=== PATIENT | male | born 1945 | race Caucasian/White ===

== ENCOUNTER 2022-10-05 06:07 | Day surgery (SDC) | payer MEDICARE ==
[2022-09-27 14:40] LABS: BASOPHILS % (AUTO) 0.7 % (0-1); EOSINOPHILS # (AUTO) 0.1 X10'3 (0-0.9); EOSINOPHILS % (AUTO) 1.5 % (0-6); LYMPHOCYTES # (AUTO) 1.7 X10'3 (1.1-4.8); LYMPHOCYTES % (AUTO) 26.6 % (21-51); MEAN CORPUSCULAR HEMOGLOBIN 36.4 PG (27.0-31.0); MEAN CORPUSCULAR HGB CONC 34.2 g/dL (33.0-36.5); MEAN CORPUSCULAR VOLUME 106.3 FL (78-98); MEAN PLATELET VOLUME 7.9 FL (7.4-10.4); MONOCYTES # (AUTO) 0.5 X10'3 (0-0.9); MONOCYTES % (AUTO) 8.5 % (2-12); NEUTROPHILS % (AUTO) 62.7 % (42-75); PRE OP HEMATOCRIT 41.4 % (42.0-52.0); PRE OP HEMOGLOBIN 14.2 g/dL (14.0-17.9); PRE OP PLATELET COUNT 205 X10'3 (140-440); RED BLOOD COUNT 3.89 X10'6 (4.70-6.10); RED CELL DISTRIBUTION WIDTH 12.8 % (11.5-14.5)
[2022-09-27 14:53] LABS: ALBUMIN 4.1 G/DL (3.4-5.0); ALBUMIN/GLOBULIN RATIO 1.2 (1.1-1.5); ALKALINE PHOSPHATASE 77 IU/L (46-116); BLOOD UREA NITROGEN 19 MG/DL (7-18); BUN/CREATININE RATIO 18.8 (10.0-20.0); CALCIUM 8.8 MG/DL (8.5-10.1); CHLORIDE 104 MMOL/L (99-107); CREATININE 1.01 MG/DL (0.60-1.10); PRE OP ALT 36 U/L (30-65); PRE OP ANION GAP 7 (8-16); PRE OP AST 18 U/L (10-37); PRE OP BILIRUB, TOTAL 0.4 MG/DL (0.0-1.0); PRE OP GLUCOSE 106 MG/DL (70-104); PRE OP SODIUM 137 MMOL/L (135-145); TOTAL CARBON DIOXIDE 25.6 MMOL/L (24-32); TOTAL PROTEIN 7.4 G/DL (6.4-8.2); eGFR 72 ML/MIN
[~2022-10-05] VITALS: Ht 175.3 cm; Wt 79.8 kg
[~2022-10-05 06:07] MED LIST: AMLO1CAP10 PO; APIX5TAB3 PO; FLEC50TA28 PO; cefazolin 2gm/D5W 100mL 100 ML IV ONE; famotidine 20mg tablet PO ONE; ringers solution, lacted 1,000 ML IV SCH
[2022-10-05] MEDS ORDERED: meperidine/PF 25mg/ml syringe IV PRN ×3 (08:05)
[2022-10-05] MEDS ORDERED: morphine 2 MG/ML inj. syringe IV PRN (08:05)
[2022-10-05] MEDS ORDERED: ondansetron/PF 4mg/2ml inj IV PRN (08:05)
[2022-10-05] MEDS ORDERED: morphine 4 MG/ML inj SYRINge IV PRN (08:05)
[2022-10-05] MEDS ORDERED: proCHLORperazine 10 MG/2 ml inj IV PRN (08:05)
[2022-10-05] MEDS ORDERED: acetaminophen 1,000mg/100ml IV 100 ML IV PRN (08:05)
[2022-10-05] MEDS ORDERED: labetalol 20mg/4ml (5mg/ml) syringe IV PRN (08:05)
[2022-10-05] MEDS ORDERED: ringers solution, lacted 1,000 ML IV SCH (08:05)
[2022-10-05] MEDS ORDERED: hydrALAZINE 20mg/ml inj. IV PRN (08:05)
[2022-10-05] MEDS ORDERED: LIDOcaine 0.5% (5mg/ml) 50ml vial ONE (08:13)
[2022-10-05] MEDS ORDERED: fentaNYL/PF 50MCG/1 ML 2ML syringe ONE (08:18)
[2022-10-05] MEDS ORDERED: midazolam 1 mg/ML 2ml injection ONE (08:18)
[2022-10-05] MEDS ORDERED: BUPIVAcaine/PF 2.5mg/ml (0.25%) 10ml vial IJ ONE (08:39)
[2022-10-05] MEDS ORDERED: propofol inj 20 ML IV ONE (08:52)
[2022-10-05 09:03] VITALS: BP 158/94
--- NOTE | 2022-10-05 09:03 | NUR ---
Received from OR via , accompanied by Anesthesiologist AMARA AND OR NURSE and report given by Anesthesiolgist. PT IS AWAKE AND ALERT AND DENIES PAIN OR DISCOMFORT. RT HAND/WRIST IN COTTON/SPLINT AND DEANGELO WRAP; CDI. 20G TO LT AC. VSS WITH PREVIOUSLY DIAGNOSED A FIB Addendum: 10/05/22 at 1008 by Stephanie Sargent RN Amended: Links added.
[2022-10-05 09:10] VITALS: BP 151/81
[2022-10-05 09:19] VITALS: BP 153/80
[2022-10-05 09:20] VITALS: BP_SYST 153; BP_SYST 157; BP_DIAS 79; BP_DIAS 80
[2022-10-05 09:30] VITALS: BP 133/91
[2022-10-05 09:40] VITALS: BP 131/69
--- NOTE | 2022-10-05 09:53 | NUR ---
ALL DISCHARGE CRITERIA HAS BEEN MET. VSS, PAIN AT A TOLERABLE LEVEL, VOIDING AND ABLE TO SAFELY AMBULATE AND TRANSFER SELF. IV TAKEN OUT WITHOUT ANY COMPLICATIONS. ALL DISCHARGE INSTRUCTIONS COVERED WITH PATIENT AND ALL QUESTIONS ANSWERED. PATIENT TAKEN OUT VIA WHEELCHAIR TO PERSONAL VEHICLE WHERE FAMILY/FRIEND DROVE PATIENT HOME. Addendum: 10/05/22 at 1009 by Stephanie Sargent RN Amended: Links added.
== END 2022-10-05 09:53 | disposition home or self-care (01) ==
LOC: PAS 06:07
PROVIDERS: ATTEND Orthopaedic Surgery Hand Surgery
DX: M72.0 Palmar fascial fibromatosis [Dupuytren] (principal); I10 Essential (primary) hypertension; I48.91 Unspecified atrial fibrillation; Z98.890 Other specified postprocedural states; Z79.899 Other long term (current) drug therapy; Z79.01 Long term (current) use of anticoagulants; Z79.82 Long term (current) use of aspirin; Z72.89 Other problems related to lifestyle; Z82.49 Family history of ischemic heart disease and other diseases of the circulatory system; Z80.1 Family history of malignant neoplasm of trachea, bronchus and lung
CPT/HCPCS: 26123; 36415; 80053; 82948; 85025; J0690; J2250; J2704; J3010; J3490; J7030; J7120; Z7506; Z7512; A4215; A4618; A6449; A7000